=== PATIENT | male | born 1985 | race African-American/Black ===

== ENCOUNTER 2016-04-15 11:28 | Emergency (ER) | payer BC, OTHER ==
[~2016-04-15] VITALS: Ht 182.9 cm; Wt 94.3 kg
[2016-04-15] MEDS ORDERED: IBUPROFEN 600600 M1 PO (11:54)
[2016-04-15] MEDS ORDERED: AMOXICILLIN500 M1 PO (11:54)
[2016-04-15 12:38] VITALS: BP 138/66
== END 2016-04-15 12:39 | disposition home or self-care (01) ==
LOC: ER 11:28
DX: K04.7 Periapical abscess without sinus (principal); K02.9 Dental caries, unspecified; F17.210 Nicotine dependence, cigarettes, uncomplicated; F10.99 Alcohol use, unspecified with unspecified alcohol-induced disorder